=== PATIENT | male | born 1965 | race Caucasian/White ===

== ENCOUNTER 2019-08-31 23:40 | Emergency (ER) | payer OTHER ==
[2019-08-31 23:45] VITALS: BP 162/85; PULSE 64; TEMP 98.1; BMI 28.3
[2019-09-01] MEDS ORDERED: KETOROLAC TROMETHAMINE 60 MG/2 ML VIAL IM ONE (00:58)
[2019-09-01] MEDS ORDERED: KETOROLAC TROMETHAMINE 60 MG/2 ML VIAL ONE (00:58)
[2019-09-01] MEDS ORDERED: LIDOCAINE 5% TOPICAL PATCH ONE (01:02)
[2019-09-01] MEDS ORDERED: LIDOCAINE 5% TOPICAL PATCH TP ONE (01:17)
--- NOTE | 2019-09-01 01:52 | PDOC ---
Attending Attestation - Resident Resident Name: Bulmaro Porter - ED Attending Attestation I have performed the following: I have examined & evaluated the patient, The case was reviewed & discussed with the resident, I agree w/resident's findings & plan - HPI HPI: 09/01/19 02:18 Pt comes with back and flank pain - Physicial Exam PE: 09/02/19 06:52 Agree with resident exam - Medical Decision Making 09/01/19 03:41 Patient Name: PATITO DIXON THIS IS A PRELIMINARY REPORT FROM [facility] DATE OF SERVICE: 2019-09-01 01:54:54 IMAGES: 25 EXAM bilateral renal ultrasound HISTORY: Left flank pain COMPARISON: None. FINDINGS: Right kidney measures 10.1 cm x 5.4 cm x 5.6 cm. No right hydronephrosis right renal stone or other right renal abnormality. Left kidney measures 9.9 cm x 5.8 cm x 6 cm. No left hydronephrosis. There are some tiny echogenic foci in the left kidney but I am not certain that they represent stones. 09/01/19 03:46 Labs are pending. 09/01/19 04:00 CBC is normal; leftward shift UA is normal other than slight ketones CHem pending. Pt will go home if Chem is normal
--- NOTE | 2019-09-01 02:22 | PDOC ---
History of Present Illness - General Chief Complaint: Back Pain Stated Complaint: BACK PAIN Time Seen by Provider: 09/01/19 01:07 History Source: Patient Exam Limitations: No Limitations - History of Present Illness Initial Comments: 09/01/19 02:17 53 yo male no sig medical hx presents to the ED for severe and intermittent R flank pain. Pt states the pain started suddenly tonight, described as sharp and squeezing with radiation around the right flank into the abdomen. Pt admits to having similar pain years ago, self resolved without seeing a doctor. Denies changes in urinary habits, blood in urine, CP, SOB, abdominal pain, F/C/N/V. Past History - Past Medical History Allergies/Adverse Reactions: Allergies Allergy/AdvReac Type Severity Reaction Status Date / Time No Known Allergies Allergy Verified 08/31/19 23:45 Home Medications: Ambulatory Orders Amlodipine Besylate 5 mg PO DAILY tablet 02/20/14 CVA: No COPD: No HTN: Yes - Psycho Social/Smoking Cessation Hx Smoking History: Never smoked Substance Use Type: None Review of Systems - Review of Systems Constitutional: Yes: See HPI HEENTM: Yes: See HPI Respiratory: Yes: See HPI Cardiac (ROS): Yes: See HPI ABD/GI: Yes: See HPI : Yes: See HPI Musculoskeletal: Yes: See HPI Integumentary: Yes: See HPI Neurological: Yes: See HPI *Physical Exam - Vital Signs Last Vital Signs Temp Pulse Resp BP Pulse Ox 98.1 F 64 18 162/85 99 08/31/19 23:42 08/31/19 23:42 08/31/19 23:42 08/31/19 23:42 08/31/19 23:42 - Physical Exam General Appearance: Yes: Nourished, Appropriately Dressed. No: Apparent Distress HEENT: positive: EOMI Neck: positive: Supple. negative: Carotid bruit Respiratory/Chest: positive: Lungs Clear, Normal Breath Sounds. negative: Respiratory Distress, Accessory Muscle Use, Rapid RR, Crackles, Rales, Rhonchi, Stridor, Wheezing Cardiovascular: positive: Regular Rhythm, Regular Rate, S1, S2. negative: Edema, JVD, Murmur Vascular Pulses: Dorsalis-Pedis (R): 4+, Doralis-Pedis (L): 4+ Gastrointestinal/Abdominal: positive: Flat, Soft. negative: Pulsatile Mass, Protuberent, Distended, Guarding, Rebound, Tenderness Musculoskeletal: positive: CVA Tenderness (right) Extremity: positive: Normal Capillary Refill, Normal Inspection, Normal Range of Motion Integumentary: positive: Normal Color, Dry, Warm Neurologic: positive: Fully Oriented, Alert, Normal Mood/Affect, Normal Response ED Treatment Course - LABORATORY CBC & Chemistry Diagram: 09/01/19 03:30 09/01/19 03:30 - RADIOLOGY Radiology Studies Ordered: Category Date Time Status KIDNEY / RENAL US [US] Stat Ultrasound 09/01/19 01:48 Taken - Medications Given in the ED: ED Medications Discontinued Medications Generic Name Dose Route Start Last Admin Trade Name Freq PRN Reason Stop Dose Admin Ketorolac Tromethamine 60 mg 09/01/19 00:58 09/01/19 01:06 Toradol Injection - IM 09/01/19 00:59 60 mg ONCE ONE Administration Lidocaine 1 patch 09/01/19 01:17 09/01/19 01:18 Lidoderm Patch - TP 09/01/19 01:18 1 patch ONCE ONE Administration Medical Decision Making - Medical Decision Making 09/01/19 02:21 53 yo male no sig medical hx presents to the ED for severe and intermittent R flank pain. Pt states the pain started suddenly tonight, described as sharp and squeezing with radiation around the right flank into the abdomen. Pt admits to having similar pain years ago, self resolved without seeing a doctor. Denies changes in urinary habits, blood in urine, CP, SOB, abdominal pain, F/C/N/V. vitas WNL On my examination pt already received Toradol and lidoderm patch with improvement in pain Labs and UA ordered along with Renal US to r/o hyro 09/01/19 04:24 pain resolved Renal US negative for hydro UA and labs WNL Pt safe for DC home with PCP f/u Discharge - Discharge Information Problems reviewed: Yes Clinical Impression/Diagnosis: Epigastric abdominal pain, Back pain Condition: Stable Disposition: HOME - Admission No - Follow up/Referral - Patient Discharge Instructions Patient Printed Discharge Instructions: DI for Abdominal Pain-Adult, DI for Thoracic Back Pain Additional Instructions: Please see your Primary Doctor within the next 48 hours. Take over the counter Motrin as needed for pain. Return to the ER for new or concerning symptoms including but not limited to: inability to eat or drink, fevers, severe abdominal pain, inability to urinate. Thank you - Post Discharge Activity
[2019-09-01 03:50] LABS: BASO % 0.2 % (0-2.0); EOS % 0.2 % (0-4.5); HEMATOCRIT 44.7 % (35.4-49); HEMOGLOBIN 15.1 GM/dL (11.7-16.9); LYMPH % 6.3 % (8-40); MCH 29.4 pg (25.7-33.7); MCHC 33.9 g/dl (32.0-35.9); MEAN CELL VOLUME 86.7 fl (80-96); MEAN PLT VOLUME 8.5 fl (7.5-11.1); MONO % 3.4 % (3.8-10.2); NEUT % 89.9 % (42.8-82.8); PLATELET COUNT 174 K/MM3 (134-434); RBC 5.15 M/mm3 (4.00-5.60); RDW 13.3 % (11.9-15.9); URINE APPEARANCE CLEAR; URINE BILIRUBIN NEGATIVE (NEGATIVE); URINE COLOR YELLOW; URINE GLUCOSE (UA) NEGATIVE (NEGATIVE); URINE KETONE TRACE (NEGATIVE); URINE LEUK ESTERASE NEGATIVE (NEGATIVE); URINE NITRITE NEGATIVE (NEGATIVE); URINE PROTEIN TRACE (NEGATIVE); WHITE BLOOD COUNT 8.8 K/mm3 (4.0-10.0)
[2019-09-01 04:19] LABS: ALBUMIN 4.1 g/dl (3.4-5.0); BILIRUBIN,TOTAL 0.6 mg/dL (0.2-1); BLOOD UREA NITROGEN 12.8 mg/dL (7-18); CALCIUM 8.4 mg/dL (8.5-10.1); CREATININE 0.9 mg/dL (0.55-1.3); TOT PROT 7.6 g/dl (6.4-8.2)
[2019-09-01] MEDS ORDERED: LIDOCAINE PATCH REMOVAL MC SCH (22:00)
== END 2019-09-01 04:44 | disposition home or self-care (01) ==
LOC: JER 23:40
PROC: 3E0233Z Introduction of Anti-inflammatory into Muscle, Percutaneous Approach (ICD-10-PCS; principal; 2019-08-31)
DX: R10.13 Epigastric pain (principal); I10 Essential (primary) hypertension
CPT/HCPCS: 36415; 76775-TC; 80053; 81003; 85025; 99285-25